=== PATIENT | male | born 1965 | race Caucasian/White ===

== ENCOUNTER 2017-03-30 12:01 | Emergency (ER) | payer SELFPAY ==
[2017-03-30 12:07] VITALS: BMI 27.7
[2017-03-30] MEDS ORDERED: NITROSTAT SL ONE (12:16)
--- NOTE | 2017-03-30 12:18 | DR.GENAD ---
HPI - PCP Primary Care Physician: NFD - Complaint/Symptoms Chief Complaint:: PATIENT STATED HE HAD STINTS PUT IN IN WAYCROSS ABOUT 1 MONTH AGO. HE STARTED HAVING CHEST PAIN AND LEFT ARM PAIN AND DIZZY ABOUT A HOUR AGO. PATIENT STATED HE IS OUT OF HIS BP MEDS FOR 3 DAYS. - Nurses notes reviewed Nurses Notes Review: Yes - Source History Provided: Patient - Mode of Arrival Mode of Arrival: Ambulatory - Timing Onset of Chief Complaint: 03/30/17 Came on: Suddenly - Duration Duration: Constant How lon Duration: Hours - Location Location: chest and left arm - Severity Severity: Moderate - Modifying Factors Worsens:: exertion - Associated Signs and Symptoms Associated Signs and Symptoms: left arm pain and elevated BP PMH - PMH Past Medical History: Yes Past Medical History: Diabetes, Hypertension Past Surgical History: Yes Surgical History: Angioplasty/Stents, Ortho Surgery - Family History History of Family Medical Conditions: No - Social History Does patient currently use any type of tobacco product: No Have you used tobacco products in the last 12 months: No Type of Tobacco Use: None Does any household member use tobacco: No Alcohol Use: None Do you use any recreational Drugs:: No Lives With: Family Lives Where: Home - infectious screening In the last 2 months have you had wt loss of >10#?: NO Have you had fever, night sweats or hemotysis?: No Have you traveled outside the country in the last 6 months?: No Isolation: Standard ROS - Review of Systems Constitutional: No Symptoms Reported Eyes: No Symptoms Reported ENTM: No Symptoms Reported Respiratoy: No Symptoms Reported Cardiovascular: Chest Pain (radiating to left arm) Gastrointestinal/Abdominal: No Symptoms Reported Genitourinary: No Symptoms Reported Neurological: No Symptoms Reported Musculoskeletal: No Symptoms Reported Integumentary: No Symptoms Reported Hematologic/Lymphatic: No Symptoms Reported Endocrine: No Symptoms Reported Psychiatric: No Symptoms Reported PE - Vital Signs Vitals: Temperature 98.9 F Pulse Rate [Left Brachial] 81 Pulse Rate 87 Respiratory Rate 16 Blood Pressure [Left Arm] 164/92 Blood Pressure 213/121 O2 Sat by Pulse Oximetry 99 - General Limitations: No Limitations General Appearance: Alert, In No Apparent Distress - Head Head Exam: Normal Inspection - Eyes Eye exam: Normal Appearance, EOMI. negative: Scleral Icterus, Conjunctival Injection - ENT ENT Exam: Normal Exam External Ear Exam: Normal External Inspection - Neck Neck Exam: Normal Inspection, Full ROM, Trachea Midline - Chest Chest Inspection: Normal Inspection - Respiratory Respiratory Exam: Normal Lung Sounds Bilat. negative: Accessory Muscle Use, Respiratory Distress Respiratory Exam: Bilateral Clear to Auscultation - Cardiovascular Cardiovascular Exam: Regular Rate - Extremities Extremities Exam: Normal Inspection, Full ROM - Back Back Exam: Normal Inspection, Full ROM - Neurologic Neurological Exam: Alert, Oriented X3, CN II-XII Intact - Psychiatric Psychiatric Exam: Anxious - Skin Skin Exam: Intact, Normal Color Course - Treatment Treatment: 1230: pain resolved after nitroglycerin - Consultation Called: 13:30 Call Returned: 13:32 Consultation Comments: Case discussed with DR. Bee cardiology [facility], accepted by Dr. Seaman at [facility] - Labs Reviewed Result Diagrams: 03/30/17 12:19 03/30/17 12:19 Laboratory: WBC 8.0 X10^3/uL (3.6-10.0) 03/30/17 12:19 RBC 4.85 X10^6/uL (4.7-6.0) 03/30/17 12:19 Hgb 14.7 g/dL (13.5-18.0) 03/30/17 12:19 Hct 42.0 % (42.0-54.0) 03/30/17 12:19 MCV 86.5 fL (80.0-100.0) 03/30/17 12:19 MCH 30.2 pg (27.0-34.0) 03/30/17 12:19 MCHC 35.0 g/dL (33.0-35.0) 03/30/17 12:19 RDW 13.6 % (11.6-16.5) 03/30/17 12:19 Plt Count 174 X10^3/uL (150.0-450.0) 03/30/17 12:19 MPV 9.6 fL (7.4-11.0) 03/30/17 12:19 Neut % 71.4 % (42.0-75.0) 03/30/17 12:19 Lymph % 18.0 % (21.0-51.0) L 03/30/17 12:19 [place] % 6.0 % (0.0-13.0) 03/30/17 12:19 Eos % 3.5 % (0.9-2.9) H 03/30/17 12:19 Baso % 1.1 % (0.2-1.0) H 03/30/17 12:19 Neut # 5.7 x10^3/uL (2.2-4.8) H 03/30/17 12:19 Lymph # 1.4 X10^3/uL (1.3-2.9) 03/30/17 12:19 [place] # 0.5 x10^3/uL (0.3-0.8) 03/30/17 12:19 Eos # 0.3 x10^3/uL (0.0-0.2) H 03/30/17 12:19 Baso # 0.1 X10^3/uL (0.0-0.1) 03/30/17 12:19 Absolute Nucleated RBC 0.1 /100WBC 03/30/17 12:19 INR Target Range - 03/30/17 12:19 INR 1.00 (0.8-1.3) 03/30/17 12:19 PTT 27.3 SECONDS (22.9-36.5) 03/30/17 12:19 PTT Comment - 03/30/17 12:19 Sodium 140 mmol/L (136-145) 03/30/17 12:19 Corrected Sodium 142 mmol/L (136-145) 03/30/17 12:19 Potassium 3.7 mmol/L (3.5-5.1) 03/30/17 12:19 Chloride 102 mmol/L (98-107) 03/30/17 12:19 Carbon Dioxide 28.0 mmol/L (21-32) 03/30/17 12:19 BUN 14 mg/dL (7-18) 03/30/17 12:19 Creatinine 0.90 mg/dL (0.70-1.30) 03/30/17 12:19 Est GFR (MDRD) Af Amer > 60 (>60) 03/30/17 12:19 Est GFR (MDRD) Non-Af > 60 (>60) 03/30/17 12:19 Glucose 175 mg/dL (65-99) H 03/30/17 12:19 Calcium 9.1 mg/dL (8.5-10.1) 03/30/17 12:19 Corrected Calcium TNP 03/30/17 12:19 Magnesium 1.7 mg/dL (1.7-2.9) 03/30/17 12:19 Total Bilirubin 0.40 mg/dL (0.2-1.0) 03/30/17 12:19 AST 18 Units/L (15-37) 03/30/17 12:19 ALT 27 Units/L (12-78) 03/30/17 12:19 Alkaline Phosphatase 68 Units/L (46-116) 03/30/17 12:19 Creatine Kinase 158 Units/L (39-308) 03/30/17 12:19 CK-MB (CK-2) 3.6 ng/mL (0-4.0) 03/30/17 12:19 CK/CKMB % Calc 2.3 % (<4) 03/30/17 12:19 Troponin I 0.05 ng/mL (0-1.5) 03/30/17 12:19 Total Protein 7.5 g/dL (6.4-8.2) 03/30/17 12:19 Albumin 4.0 g/dL (3.4-5.0) 03/30/17 12:19 Globulin 3.5 g/dL (2.5-4.5) 03/30/17 12:19 Albumin/Globulin Ratio 1.1 Ratio (1.1-2.1) 03/30/17 12:19 - EKG Rate: 80 Block: RBBB Hypertrophy: None ST: Inf, Infarct - Diagnosis Discharge Problem: Chest pain Qualifiers: Chest pain type: precordial pain Qualified Code(s): R07.2 - Precordial pain - Discharge Plan Disposition: Disch/Tx to Hospital Condition: Stable - Follow ups/Referrals Follow ups/Referrals: NFD,None [Primary Care Provider] - 3 days - Instructions
[2017-03-30] MEDS ORDERED: NITROSTAT SL PRN (12:23)
[2017-03-30] MEDS ORDERED: MORPHINE SULFATE INJ 2 MG IVP ONE (12:30)
[2017-03-30] MEDS ORDERED: MORPHINE SULFATE INJ 2 MG ONE (12:31)
[2017-03-30 12:38] LABS: BASOPHILS # (AUTO) 0.1 X10^3/uL (0.0-0.1); BASOPHILS % (AUTO) 1.1 % (0.2-1.0); EOSINOPHILS # (AUTO) 0.3 x10^3/uL (0.0-0.2); EOSINOPHILS % (AUTO) 3.5 % (0.9-2.9); HEMOGLOBIN 14.7 g/dL (13.5-18.0); LYMPHOCYTES # (AUTO) 1.4 X10^3/uL (1.3-2.9); MEAN CORPUSCULAR HEMOGLOBIN 30.2 pg (27.0-34.0); MEAN CORPUSCULAR VOLUME 86.5 fL (80.0-100.0); MEAN PLATELET VOLUME 9.6 fL (7.4-11.0); MONOCYTES # (AUTO) 0.5 x10^3/uL (0.3-0.8); NEUTROPHILS # (AUTO) 5.7 x10^3/uL (2.2-4.8); NEUTROPHILS % (AUTO) 71.4 % (42.0-75.0); PLATELET COUNT 174 X10^3/uL (150.0-450.0); RED BLOOD COUNT 4.85 X10^6/uL (4.7-6.0); RED CELL DISTRIBUTION WIDTH 13.6 % (11.6-16.5)
[2017-03-30] MEDS ORDERED: NORMODYNE INJ 100 MG VIAL IVP ONE (12:44)
[2017-03-30] MEDS ORDERED: NORMODYNE INJ 20 MG VIAL ONE (12:46)
[2017-03-30 12:53] LABS: BLOOD UREA NITROGEN 14 mg/dL (7-18); CALCIUM 9.1 mg/dL (8.5-10.1); CHLORIDE 102 mmol/L (98-107); COR NA(FOR HYPERGLY) 142 mmol/L (136-145); GLUCOSE 175 mg/dL (65-99); SODIUM 140 mmol/L (136-145); TROPONIN I 0.05 ng/mL (0-1.5); eGFR BLACK RACES > 60 (>60); eGFR NON BLACK RACES > 60 (>60)
[2017-03-30 12:57] LABS: ALANINE AMINOTRANSFERASE 27 Units/L (12-78); ALKALINE PHOSPHATASE 68 Units/L (46-116); ASPARTATE AMINO TRANSFERASE 18 Units/L (15-37); CKMB % 2.3 % (<4); CREATINE KINASE 158 Units/L (39-308); CREATINE KINASE MB 3.6 ng/mL (0-4.0); MAGNESIUM 1.7 mg/dL (1.7-2.9); TOTAL PROTEIN 7.5 g/dL (6.4-8.2)
[2017-03-30 13:24] VITALS: BP 164/92
--- NOTE | 2017-03-30 14:26 | RAD ---
HISTORY: Chest pain Study: Single view chest. Comparison: None. Findings: The trachea is midline. The cardiac silhouette is enlarged with LVH. Chronic lung changes are appre ciated without radiographic evidence for florid CHF or pulmonary edema. The lungs are clear without focal infiltrate or effusion. The bony thorax is unremarkable. IMPRESSION: 1. Cardiomegaly and evidence for left ventricular hypertrophy without evidence for acute cardiopulm onary abnormality or CHF. Chronic interstitial lung densities remain. Reported By:
== END 2017-03-30 13:50 | disposition left against medical advice (07) ==
LOC: ER 12:17
DX: R07.2 Precordial pain (principal); R07.89 Other chest pain
CPT/HCPCS: 36415; 71010; 80053; 82550; 82553; 83735; 84484; 85025; 85610; 85730; 93005; 93010; 96365; 96374; 96375; 99283; A4222; J2270; J3490